=== PATIENT | male | born 1945 | race Caucasian/White ===

== ENCOUNTER → 2017-11-05 | Outpatient (CLI) | payer MEDICARE ==
[~2017-11-05] MED LIST: ACETAMINOPHEN325 M1 PO; ALBUTEROL0.63 MG/3; ATORVASTATIN CA20 MG PO; BYSTOLIC10 MG PO; CLARITIN-D 241 EACH PO; FUROSEMIDE40 MG PO; LISINOPRIL10 MG PO; NAPROXEN500 M1 PO; NEXIUM40 MG PO; PROAIR HFA INH8.5 GM; SIMVASTATIN40 MG PO; ULORIC80 MG PO; VASOTEC5 M1 PO; VICODIN 5-5001 EACH PO; ZETIA10 MG PO
--- NOTE | 2017-11-05 08:04 | Diagnostic Imaging Report ---
PROCEDURE:CHEST 2 VIEWS TECHNIQUE:PA and lateral chest totaling 3 radiographs INDICATION:Emphysema COMPARISON:Patients [facility], CT, CT CHEST WO, 10/17/2016, 13:30. Patients [facility], DX, CHEST 2 VIEWS, 09/09/2007, 15:29. FINDINGS: Right lower lobe platelike atelectasis with associated right hemidiaphragm elevation. Lungs otherwise clear. No pleural effusions. Normal heart size. Mildly prominent central pulmonary vasculature. Intact skeleton. CONCLUSION: Prominent central vasculature suggesting pulmonary hypertension. Low lung volume with right lower lobe plate-like atelectasis. Dictated by: John Vargas M.D. on 11/05/2017 at 8:07 Electronically approved by: John Vargas M.D. on 11/05/2017 at 8:07
== END ==
LOC: RAD 07:25
PROVIDERS: ATTEND Internal Medicine Pulmonary Disease
DX: J43.9 Emphysema, unspecified (principal)
CPT/HCPCS: 71046

== ENCOUNTER 2018-03-14 19:18 | Inpatient (IN) | payer MEDICARE, OTHER ==
[~2018-03-14] VITALS: Ht 177.8 cm; Wt 127.0 kg
--- OUTSIDE RECORDS SUMMARY | 2018-03-14 19:21 | XMS REPORT ---
Author [facility] Address Unknown Phone Unavailable Care Team Providers Care Predictive Maintenance Specialist Name Role Phone EUGENE MONROY Unavailable Unavailable Problems This patient has no known problems. Allergies, Adverse Reactions, Alerts This patient has no known allergies or adverse reactions. Medications This patient has no known medications. Results Test Description Test Time Test Comments Text Results Atomic Results Result Comments CHEST 2 VIEWS 2017-11-05 08:07:00 [place] [address] Patient Name: TIFF BARKLEY MR #: [id number] : 1945 Age/Sex: 72/M Req #: [id number] Adm Physician: Ordered by: EUGENE MONROY MD Report #: [id number] Location: [facility] Room/Bed: Procedure: [id number] DX/CHEST 2 VIEWS Exam Date: 11/05/17 Exam Time: 0740 REPORT STATUS: Signed PROCEDURE: CHEST 2 VIEWS TECHNIQUE: PA and lateral chest totaling 3 radiographs INDICATION: Emphysema COMPARISON: Patients [facility], CT, CT CHEST WO, 10/17/2016, 13:30. Patients [facility], DX, CHEST 2 VIEWS, 09/09/2007, 15:29. FINDINGS: Right lower lobe platelike atelectasis with associated right hemidiaphragm elevation. Lungs otherwise clear. No pleural effusions. Normal heart size. Mildly prominent central pulmonary vasculature. Intact skeleton. CONCLUSION: Prominent central vasculature suggesting pulmonary hypertension. Low lung volume with right lower lobe plate-like atelectasis. Dictated by: Nancy Vargas M.D. on 11/05/2017 at 8:07 Electronically approved by: Nancy Vargas M.D. on 11/05/2017 at 8:07 Dictated By: NANCY VARGAS MD 6 Transcribed By: JAZMINE on 11/05/17 08 COPY TO: EUGENE MONROY MD
[2018-03-14] MEDS ORDERED: SODIUM CHLORIDE 0.9% 1000ML 1,000 ML IV STA (20:08)
[2018-03-14 20:17] LABS: BASOPHILS % 0.5 % (0.0-1.0); EOSINOPHILS % 0.5 % (0.0-6.0); LYMPHOCYTES # (AUTO) 0.5 (1.0-3.2); LYMPHOCYTES % 8.6 % (18.0-39.1); MEAN CORPUSCULAR HEMOGLOBIN 31.9 pg (28-32); MEAN CORPUSCULAR HGB CONC 29.8 g/dL (31-35); MEAN CORPUSCULAR VOLUME 107.1 fL (81-99); MONOCYTES # (AUTO) 0.5 (0.2-0.8); MONOCYTES % 8.6 % (4.4-11.3); NEUTROPHILS % 81.1 % (38.7-80.0); PLATELET COUNT 106 x10e3/uL (140-360); RED BLOOD COUNT 4.39 x10e6/uL (4.3-5.7); RED CELL DISTRIBUTION WIDTH 14.4 % (11.7-14.4)
[2018-03-14 20:32] LABS: ALBUMIN 3.7 g/dL (3.5-5.0); ALBUMIN/GLOBULIN RATIO 1.2 (0.8-2.0); ANION GAP 14.4 mmol/L (8-16); CREATININE, SERUM 1.53 mg/dL (0.72-1.25)
[2018-03-14 20:38] LABS: CREATINE KINASE MB 4.8 ng/mL (0-5.0)
[2018-03-14 20:40] LABS: POTASSIUM 6.4 mmol/L (3.5-5.1)
[2018-03-14] MEDS ORDERED: INSULIN REGULAR, HUMAN 100 UNIT/1 ML 3ML VIAL IV NR (20:47)
[2018-03-14] MEDS ORDERED: CALCIUM CHLORIDE 10% 1.36 MEQ/ML 10ML SYR IV STA (20:47)
[2018-03-14] MEDS ORDERED: DEXTROSE 50% SYRINGE 50 ML IV STA (20:47)
[2018-03-14] MEDS ORDERED: SOD POLYSTYRENE SULFONATE SUSP 15 GM/60 ML BTL PO ONE (21:00)
[2018-03-14] MEDS ORDERED: SODIUM BICARBONATE 8.4% INJ 50 ML SYR IV NR (21:00)
--- NOTE | 2018-03-14 21:09 | Diagnostic Imaging Report ---
EXAMINATION: Head CT without contrast. HISTORY:Fall, general weakness. COMPARISON:Report of CT brain from 07/10/2012, images are not available for comparison at the time of interpretation. TECHNIQUE: Multidetector axial images were obtained from the foramen magnum to the vertex without contrast. The images were reconstructed using brain and bone algorithms. Thin section brain images were reformatted into coronal and sagittal planes. Dose modulation, iterative reconstruction, and/or weight based adjustment of the mA/kV was utilized to reduce the radiation dose to as low as reasonably achievable. Intravenous contrast: None IMAGE QUALITY: Suboptimal evaluation due to motion artifacts. FINDINGS: Skull/scalp: No lytic or blastic. lesions. No surgical changes. Parenchyma: Suboptimal evaluation due to motion artifacts, despite the limitation no gross acute intracranial hemorrhage, mass or acute major vascular territorial infarct. Nonspecific bilateral frontoparietal patchy white matter hypodensity are likely related to small vessel ischemic changes. Arteries: No density suggestive of thrombosis. Atherosclerotic calcification in bilateral carotid siphon and V4 segment of the vertebral arteries. Dural sinuses: No abnormal density suggestive of thrombosis. Ventricles: No hydrocephalus or displacement. Extra-axial spaces: No abnormal density. Brain volume: Moderate generalized cerebral volume loss. Craniocervical junction: No mass, Chiari malformation, or basilar invagination. Sella: No mass. Paranasal/mastoid sinuses: Near complete opacification of right sphenoid sinus. Partial opacification of left mastoid air cells. IMPRESSION: Suboptimal evaluation due to motion artifacts, despite the limitation no gross acute intracranial abnormality. Mild supratentorial white matter microvascular ischemic changes. Moderate generalized cerebral volume loss. Signed by: Dr. Olinda Stockton M.D. on 03/14/2018 9:06 PM
--- NOTE | 2018-03-14 21:13 | Diagnostic Imaging Report ---
EXAMINATION: CHEST SINGLE (PORTABLE) INDICATION: Shortness of breath, fall, weakness ^SOB ^Y COMPARISON: Chest radiograph 11/05/2017 FINDINGS: AP view TUBES and LINES: None. LUNGS: Low lung volumes with vascular crowding and bibasilar atelectasis. There is no evidence of pneumonia or pulmonary edema. PLEURA: No pleural effusion or pneumothorax. HEART AND MEDIASTINUM: The cardiomediastinal silhouette is unremarkable. BONES AND SOFT TISSUES: No acute osseous lesion. Soft tissues are unremarkable. UPPER ABDOMEN: No free air under the diaphragm. IMPRESSION: No acute thoracic abnormality. Signed by: DR. Zane Steinberg MD on 03/14/2018 9:09 PM
[2018-03-14] MEDS ORDERED: CALCIUM CHLORIDE 13.6 MEQ in SODIUM CHLORIDE 0.9% 100 ML IV ONE (21:15)
[2018-03-14 21:41] LABS: ABG PH 7.33 (7.31-7.41)
[2018-03-14 21:42] LABS: ABG HCO3 46 mmol/L (23-28); ABG PCO2 87 mmHg (41-51); ABG PO2 87 mmHg (80-105)
[2018-03-14] MEDS ORDERED: ONDANSETRON HCL INJ 2 MG/ML VIAL IV STA (21:54)
[2018-03-14] MEDS ORDERED: MORPHINE SULFATE 2 MG/ML SYR IV STA (21:54)
[2018-03-14 22:26] LABS: CLARITY,URINE CLEAR (CLEAR); COLOR,URINE YELLOW (YELLOW); LEUKOCYTE ESTERASE ,URINE NEGATIVE (NEGATIVE); NITRITE,URINE NEGATIVE (NEGATIVE)
[2018-03-14 22:27] LABS: BILIRUBIN,URINE NEGATIVE (NEGATIVE); KETONES,URINE NEGATIVE (NEGATIVE); PROTEIN,URINE DIPSTICK 2+ (NEGATIVE); URINE UROBILINOGEN 0.2 mg/dL (0.2 - 1)
[2018-03-14 22:41] LABS: EPITHELIAL CELLS,URINE FEW /LPF; HYALINE CASTS 0-1 (0-1); RBC,URINE 0-5 /HPF (0-5); WBC,URINE (MAN) 0-5 /HPF (0-5)
--- NOTE | 2018-03-14 22:44 | Diagnostic Imaging Report ---
RIGHT FOOT AND ANKLE 3 VIEWS HISTORY: Status post fall and twisted ankle COMPARISON: None FINDINGS: Bones: There is a acute versus subacute fracture at the base of the second metatarsal diaphysis. Osseous alignment is within normal limits. Joints: Mild midfoot degenerative changes Soft tissues: Diffuse soft tissue edema surrounding predominantly the lateral right malleolus IMPRESSION: 1. Diffuse soft tissue edema surrounding the lateral malleolus. 2. Acute versus subacute fracture of the base of the second metatarsal diaphysis. No evidence of Lisfranc injury Signed by: Dr. Sander Devries M.D. on 03/14/2018 10:40 PM
[2018-03-15] VITALS (9 sets, daily range): BP systolic 56–97; BP diastolic 34–56
[2018-03-15 00:23] LABS: B-TYPE NATRIURETIC PEPTIDE2 33.6 pg/mL (0-100)
[2018-03-15 00:35] LABS: ABG PH 7.41 (7.31-7.41)
[2018-03-15 00:36] LABS: ABG HCO3 47 mmol/L (23-28); ABG PCO2 74 mmHg (41-51); ABG PO2 62 mmHg (80-105)
[2018-03-15] MEDS ORDERED: MORPHINE SULFATE 2 MG/ML SYR IV STA (01:01)
[2018-03-15] MEDS ORDERED: ONDANSETRON HCL INJ 2 MG/ML VIAL IV STA (01:04)
--- NOTE | 2018-03-15 01:45 | Diagnostic Imaging Report ---
FOOT LEFT COMPLETE HISTORY: Injury of the lateral left foot COMPARISON: None FINDINGS: Bones: No displaced fracture. Prior evidence of medial malleolar repair with metallic hardware without loosening or failure Osseous alignment is within normal limits. Joints: Mild degenerative changes of the midfoot and first metatarsophalangeal joint Soft tissues: The soft tissues appear unremarkable. IMPRESSION: No acute radiographic abnormality. Signed by: Dr. Sander Devries M.D. on 03/15/2018 1:41 AM
[2018-03-15] MEDS ORDERED: NALOXONE HCL INJ 0.4 MG/ML AMP ONE (01:48)
[2018-03-15] MEDS ORDERED: PROPOFOL IV EMULSION 10MG/ML 100 ML ONE (02:07)
[2018-03-15] MEDS ORDERED: SODIUM CHLORIDE 0.9% 500ML 500 ML ONE (02:30)
[2018-03-15] MEDS ORDERED: VECURONIUM BROMIDE FOR INJ 20 MG VIAL IV STA (02:38)
[2018-03-15] MEDS ORDERED: SODIUM CHLORIDE 0.9% 1000ML 1,000 ML ONE (02:47)
[2018-03-15] MEDS: SODIUM CHLORIDE 0.9% 1000ML 1,000 ML IV SCH ×4 (02:49→10:38)
[2018-03-15] MEDS ORDERED: PROPOFOL IV EMULSION 10 MG/ML 50 ML VIAL IV PRN (03:00)
[2018-03-15] MEDS ORDERED: SODIUM CHLORIDE 0.9% 500ML 500 ML IV ONE (03:00)
--- NOTE | 2018-03-15 03:09 | Diagnostic Imaging Report ---
EXAMINATION: CHEST SINGLE (PORTABLE) INDICATION: Status post intubation COMPARISON: 03/14/2018 FINDINGS: TUBES and LINES: Interval placement of endotracheal tube with tip 1.8 cm above the deysi LUNGS: Lungs are not well inflated. There are bibasilar atelectasis. There is mild prominence of the central pulmonary vasculature, consistent with pulmonary venous congestion. PLEURA: No pleural effusion or pneumothorax. HEART AND MEDIASTINUM: The cardiomediastinal silhouette is unremarkable. BONES AND SOFT TISSUES: No acute osseous lesion. Soft tissues are unremarkable. UPPER ABDOMEN: No free air under the diaphragm. IMPRESSION: 1. No acute thoracic abnormality. 2. Endotracheal tube is 1.8 cm above the deysi. The tube is in good position since the lung volumes are low. Signed by: Dr. Sander Devries M.D. on 03/15/2018 3:05 AM
[2018-03-15] MEDS: ALBUTEROL SULF 0.083% NEB SOLN 3 ML NEB NEB SCH ×4 (03:15→14:44)
[2018-03-15] MEDS ORDERED: CEFTRIAXONE SOD 1 GM VIAL IV SCH (03:15)
[2018-03-15 04:04] LABS: ABG PH 7.48 (7.31-7.41)
[2018-03-15 04:05] LABS: ABG HCO3 48 mmol/L (23-28); ABG PCO2 64 mmHg (41-51); ABG PO2 268 mmHg (80-105)
[2018-03-15 04:43] LABS: CREATINE KINASE MB 3.2 ng/mL (0-5.0)
[2018-03-15 05:52] LABS: ANION GAP 17.8 mmol/L (8-16); CALCIUM 9.2 mg/dL (8.4-10.2); CREATININE, SERUM 1.31 mg/dL (0.72-1.25); POTASSIUM 4.8 mmol/L (3.5-5.1)
[2018-03-15] MEDS ORDERED: METHYLPREDNISOLONE SOD SUCC 125 MG/2ML VIAL IV SCH (06:00)
[2018-03-15] MEDS ORDERED: IPRATROPIUM BROMIDE 0.02% 2.5 ML NEB NEB SCH (06:00)
[2018-03-15 06:14] LABS: BASOPHILS % 0.1 % (0.0-1.0); EOSINOPHILS % 0.3 % (0.0-6.0); HEMATOCRIT 38.5 % (38.2-49.6); LYMPHOCYTES # (AUTO) 0.6 (1.0-3.2); LYMPHOCYTES % 8.9 % (18.0-39.1); MEAN CORPUSCULAR HEMOGLOBIN 32.2 pg (28-32); MEAN CORPUSCULAR HGB CONC 30.6 g/dL (31-35); MEAN CORPUSCULAR VOLUME 105.2 fL (81-99); MONOCYTES # (AUTO) 0.9 (0.2-0.8); MONOCYTES % 12.4 % (4.4-11.3); NEUTROPHILS # (AUTO) 5.4 (2.1-6.9); NEUTROPHILS % 77.9 % (38.7-80.0); RED BLOOD COUNT 3.66 x10e6/uL (4.3-5.7); RED CELL DISTRIBUTION WIDTH 14.4 % (11.7-14.4)
[2018-03-15 06:19] LABS: HEMOGLOBIN 11.8 g/dL (14.0-18.0); PLATELET COUNT 98 x10e3/uL (140-360)
[2018-03-15] MEDS: PIPER-TAZ 3.375 GM 50 ML IV SCH ×2 (06:28→12:54)
[2018-03-15 08:17] LABS: ABG HCO3 41 mmol/L (23-28); ABG PCO2 43 mmHg (41-51); ABG PH 7.59 (7.31-7.41); ABG PO2 57 mmHg (80-105)
[2018-03-15] MEDS ORDERED: DEXTROSE 50% SYRINGE 50 ML IV PRN (09:30)
--- NOTE | 2018-03-15 09:58 | Consultation ---
DATE OF CONSULTATION: March 15, 2018 This is a patient of Dr. Duarte, Dr. Zabala, Dr. Yip. This unfortunate 72-year-old gentleman was shaking and confused at home, severely depressed, fell twice on the and taken to the emergency room. 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 History of asbestosis, COPD, heart failure, obstructive sleep apnea, noncompliant with CPAP which was repossessed. History of smoking 3 packs of cigarettes a day for 18 years. He has had hernia surgery. His home medications include Lipitor, Uloric and Lasix. HE WAS FELT TO HAVE HAD AN ADVERSE REACTION TO MORPHINE. He has a history of hypertension. He did not use his BiPAP at home. PHYSICAL EXAMINATION GENERAL: He is a burly white male intubated and sedated. VITALS: Temperature 99, pulse 54, blood pressure 115/69. He is intubated. HEAD: Normocephalic and atraumatic. NECK: Trachea is midline. LUNGS: Diminished breath sounds. HEART: Regular rhythm. ABDOMEN: Nontender. EXTREMITIES: Nonedematous. IMPRESSION: End-stage chronic obstructive pulmonary disease chronic, acute respiratory failure, shock, possible aspiration. Chest x-rays cannot be reviewed on PACS. By report, they show no evidence of pneumonia. However, he is currently on antibiotic therapy for possible aspiration. Discussed at length with daughter. The patient is now no escalation of care at the request by the family. Defer weaning today. NG tube. Continue Crane catheter. IV fluids. Consider tube feedings. Prophylactic Lovenox. Prophylactic Protonix. Thank you for this kind referral. Job#: [id number]
[2018-03-15 11:05] LABS: CREATINE KINASE MB 2.1 ng/mL (0-5.0)
[2018-03-15] MEDS ORDERED: INSULIN LISPRO 100 UNIT/1 ML 3ML VIAL SQ SCH (11:30)
[2018-03-15] MEDS: IPRATROPIUM BROMIDE 0.02% 2.5 ML NEB NEB SCH ×2 (11:40→14:00)
[2018-03-15] MEDS ORDERED: METHYLPREDNISOLONE SOD SUCC 40 MG/ML VIAL IV SCH (12:00)
--- NOTE | 2018-03-15 12:13 | Diagnostic Imaging Report ---
Exam: Abdominal film Clinical History: NG tube placement Comparison: None. DISCUSSION: The right abdomen is not included on the radiograph. Enteric tube tip projects over the expected region of the proximal gastric body. Bowel gas pattern is nonobstructive. Regional skeletal structures intact. Degenerative disc changes of the lumbar spine. IMPRESSION: Enteric tube tip projects over the expected region of the proximal gastric body. Signed by: Dr. Andrew King M.D. on 03/15/2018 12:10 PM
[2018-03-15 12:58] LABS: ABG HCO3 38 mmol/L (23-28); ABG PCO2 37 mmHg (41-51); ABG PH 7.61 (7.31-7.41); ABG PO2 111 mmHg (80-105)
[2018-03-15] MEDS ORDERED: MIDAZOLAM HCL 2 MG/2 ML VIAL ONE (13:17)
[2018-03-15] MEDS ORDERED: MIDAZOLAM HCL 25 MG in SODIUM CHLORIDE 0.9% 50ML 45 ML IV PRN (14:00)
[2018-03-15] MEDS ORDERED: FENTANYL CITRATE INJ 2,000 MCG in SODIUM CHLORIDE 0.9% 250ML 210 ML IV PRN (14:00)
[2018-03-15] MEDS ORDERED: MIDAZOLAM HCL 2 MG/2 ML VIAL IV ONE (14:00)
[2018-03-15] MEDS ORDERED: MIDAZOLAM HCL 2 MG/2 ML VIAL IV PRN (15:30)
[2018-03-15] MEDS ORDERED: KETOROLAC TROMETHAMINE 30 MG/ML VIAL IV PRN (15:30)
[2018-03-15] MEDS ORDERED: HYDROMORPHONE 1MG/1ML INJ IV PRN (16:15)
[2018-03-15] MEDS ORDERED: HYDROMORPHONE 2MG/ML 2 MG/ML ML IV PRN (16:15)
[2018-03-15] MEDS ORDERED: LORAZEPAM INJ 2 MG/ML VIAL IV PRN (16:15)
--- NOTE | 2018-03-15 17:23 | History and Physical ---
CHIEF COMPLAINT: Fall, altered mental status, metabolic encephalopathy. HPI: This is a 72-year-old male with multiple comorbidities. Of note, he has end-stage COPD, heart failure, obstructive sleep apnea, and noncompliant with CPAP machine. He has been a smoker 3 packs per day for significant number of years, who basically came in after having multiple falls at home and having some underlying encephalopathy. Patient's daughters who are at bedside and we discussed his overall condition as being very poor over the last several months to years. Of note, they have noticed that he has declined tremendously over the last several weeks, especially the several days. He has voiced to them and he does not want to continue with his life considering how sick he is with multiple issues. He is the patient of Dr. Gabriel which is his tire bagger and he has been known this gentleman for significant number of years. At this time, it seems like the family is considering comfort measures only. The family has made decisions to go ahead and compassionately extubated the patient. I discussed this with the 2 daughters at bedside who are the since the patient does not have medical power of drop wire builder and they have agreed and he is currently extubated at this time. REVIEW OF SYSTEMS: As per family, patient has been encephalopathic and confused over the last several days. ALLERGIES: TO MORPHINE. HOME MEDICATIONS: Lasix 40 mg daily, Lipitor 20 mg daily, and Uloric 80 mg daily. PAST MEDICAL HISTORY: Has end-stage COPD, CHF, obstructive sleep apnea, medical noncompliance. He also has morbid obesity. SURGICAL HISTORY: Multiple surgeries in the past. FAMILY HISTORY: Hypertension and diabetes. SOCIAL HISTORY: He was a smoker for significant number of years 3 packs per year, social drinker, no drugs. He has children. VITAL SIGNS: Currently, pulse is 69. His O2 sats 75% because he is currently extubated per family. Blood pressure 90/56. LAB FINDINGS: Show white count of 6.9, hemoglobin 11.8, hematocrit is 38.5, and platelets of 98. Chemistry; sodium 146, potassium 4.8, chloride 97, bicarb 36, anion gap of 17, BUN 20, creatinine is 1.3, glucose is 168, calcium 9.2. Troponins are 0.036 and then next one is 0.041. Blood gas shows pH of 7.6, pCO2 of 37, pO2 of 111, and bicarb of 38. MICROBIOLOGY: Blood, urine, and sputum cultures are all pending. IMAGING STUDIES: Abdominal x-ray shows the enteric tube on the tip of the gastric stomach. Chest x-ray shows no acute thoracic abnormality. The endotracheal tube is 1.8 cm above the deysi. He had chest x-ray on admission that shows no acute thoracic abnormality. A CT brain showed suboptimal evaluation due to despite the limitation of grossly acute intracranial abnormality. Ankle x-ray showed diffuse soft tissue edema surrounding the lateral malleolus, acute versus subacute fracture at the base of the 2nd metatarsal diaphysis. Foot x-ray shows similar finding as the ankle x-ray. PHYSICAL EXAMINATION GENERAL: He was intubated and sedated. He is now extubated as per family wishes. HEENT: Head normocephalic, atraumatic. Eyes reactive to light. PULMONARY: Intubated. Now, he is extubated. CARDIOVASCULAR: Positive S1 and S2. No murmurs, rubs or gallops appreciated. ABDOMEN: Soft, nondistended, nontender to palpation. Bowel sounds present. MUSCULOSKELETAL: Unable to assess. He is unresponsive. NEUROLOGIC: Unable to assess, unresponsive. SKIN: Intact. Warm to touch. Good capillary refill. PSYCHIATRIC: Unresponsive. EXTREMITIES: No edema. Good range of motion throughout. IMPRESSION 1. [id number] respiratory failure due to end-stage chronic obstructive pulmonary disease. 2. History of obstructive sleep apnea. 3. History of congestive heart failure. 4. Metabolic encephalopathy. 5. Multiple falls. 6. Medical noncompliance. PLAN: At this time after having a long discussion with the family at bedside, there are 2 daughters present including 2 granddaughters present and also discussed with Dr. Gabriel, pulmonary. At this time, they want to go ahead and compassionately extubate their father. He does not have POA. Paper work arranged for him and his spouse has several years ago, so the decision making will be the children, which currently they are present. They understand that he has been very sick over the last several months to years and over the last several days, he has been declining tremendously. They do know he is very noncompliant with his treatments. At this time, they want to go ahead and extubate him compassionately. At this time, we are going to stop all medical management. Extubation has occurred and we are going to keep him comfortable with angiolytics as well as pain medication. No blood draws at this time or any other labs. I also discussed this with the children and they verbalized understanding and agree with plan of care. They just need case management to help them with arrangement in the event that they need some sort of home arrangements. Once again, patient will be extubated compassionately as per family's wishes. Job#: [id number] RENA
[2018-03-15] MEDS ORDERED: VECURONIUM BROMIDE FOR INJ 20 MG VIAL ONE (17:35)
[2018-03-15] MEDS ORDERED: WATER STERILE 10 ML VIAL ONE (17:35)
[2018-03-15] MEDS ORDERED: SUCCINYLCHOLINE CHLORIDE 20 MG/ML 10ML VIAL ONE (17:35)
[2018-03-15] MEDS ORDERED: ETOMIDATE 2 MG/ML 10 ML INJ IV ONE (17:35)
[2018-03-15] MEDS ORDERED: HEPARIN SOD (PORCINE) 5,000 UNIT/ML VIAL SC SCH (21:00)
[2018-03-15] MEDS ORDERED: ATORVASTATIN 20 MG TAB PO SCH (21:00)
[2018-03-16] MEDS ORDERED: PANTOPRAZOLE 40 MG 10ML VIAL IV SCH (09:00)
[2018-03-16] MEDS ORDERED: FEBUXOSTAT 80 MG TAB PO SCH (09:00)
--- NOTE | 2018-03-18 02:42 | Discharge Summary ---
SUMMARY DATE OF : March 15, 2018 TIME OF : 1750 p.m. FINAL DIAGNOSES 1. Cardiopulmonary arrest. 2. End-stage chronic obstructive pulmonary disease with chronic respiratory failure. 3. Obstructive sleep apnea. 4. History of congestive heart failure. 5. Medical noncompliance. 6. Multiple falls. 7. Morbid obesity. CONSULTANTS: Pulmonary critical care. HOSPITAL COURSE: This is a 72-year-old male with known history of end-stage COPD, congestive heart failure, obstructive sleep apnea, and medical noncompliance with all his treatments and a chronic smoker, who came in after having multiple falls at home and underlying encephalopathy. Patient is well known to pulmonary Dr. Gabriel from many admissions and for many years. Patient is very noncompliant with any of his medical treatment and care. Patient refuses CPAP at home, refuses all medications. Patient presented with underlying encephalopathy and frequent falls over the last several days. On arrival here to the ED, the patient was in severe respiratory distress and had to be intubated and placed on a mechanical ventilator. Patient was then transferred to the ICU. In further discussion with a operations support coordinator as well as the family at bedside, the family had opted that the patient will be best off extubated compassionately and be placed on comfort measures only. I had a significant long discussion with the family including the 2 daughters as well as the granddaughters at bedside with the nurse present. He did not have medical power of deputy commonwealth's attorney and the patient does not have a spouse. He is currently unable to respond to us due to his intubation, due to being on a mechanical ventilator. The next of kin will be the children which is the 2 daughters here at bedside. I spoke with the daughters at bedside and they know that their father had always wished not to be on a mechanical ventilator and did not want continue treatment the way that is right now. Patient has been very noncompliant for significant number of years. In further discussion, they felt that compassionately extubating him is the choice that he wanted to be in. At this time after discussing with them with the nurse present, the patient was compassionately extubated and all medical management was discontinued. Patient was started on pain control medications as well as anxiolytics. I discussed this with pulmonary critical care and had discussed similar findings as well with the family. At this time, patient was eventually extubated and he at 1750 p.m. as per family's wishes. Condolences were given to the family. DISPOSITION: To . LIZ COBB MD Job#: [id number] VAS
== END 2018-03-15 20:49 | disposition expired | DRG 208 ==
LOC: ER 19:18 → UNDOADMIN 03-15 02:19 → ERHOLD 03-15 02:19 → ICU 03-15 14:20 → MED/SURG 03-15 19:38
PROVIDERS: ADMIT Internal Medicine; ATTEND Internal Medicine
PROC: 0BH17EZ Insertion of Endotracheal Airway into Trachea, Via Natural or Artificial Opening (ICD-10-PCS; principal; 2018-03-15)
PROC: 5A1935Z Respiratory Ventilation, Less than 24 Consecutive Hours (ICD-10-PCS; 2018-03-15)
DX: J96.01 Acute respiratory failure with hypoxia (principal); G93.41 Metabolic encephalopathy; Z68.41 Body mass index [BMI] 40.0-44.9, adult; I46.9 Cardiac arrest, cause unspecified; J44.9 Chronic obstructive pulmonary disease, unspecified; Z51.5 Encounter for palliative care; Z66 Do not resuscitate; Z91.14 Patient's other noncompliance with medication regimen; J96.02 Acute respiratory failure with hypercapnia; I11.0 Hypertensive heart disease with heart failure; I50.9 Heart failure, unspecified; G47.33 Obstructive sleep apnea (adult) (pediatric); Z91.19 Patient's noncompliance with other medical treatment and regimen; Z91.81 History of falling; Z87.891 Personal history of nicotine dependence; Z79.891 Long term (current) use of opiate analgesic; F32.9 Major depressive disorder, single episode, unspecified; J61 Pneumoconiosis due to asbestos and other mineral fibers; E66.01 Morbid (severe) obesity due to excess calories
CPT/HCPCS: 31500; 36415; 36600; 51700; 70450; 71045; 74018; 80048; 80053; 81001; 82140; 82550; 82553; 82805; 82948; 83605; 83880; 84132; 84484; 85025; 87040; 87070; 87086; 87186; 87205; 93005; 94002; 94003; 94640; 94660; 99285; J0330; J0696; J2250; J2270; J2310; J2405; J2543; J2920; J2930; J7030; J7040; J7050; J7799